=== PATIENT | male | born 1980 | race Caucasian/White ===

== ENCOUNTER → 2024-07-21 13:21 | Outpatient (REF) | payer BC, SELFPAY | LOC: RAD 13:21 | PROVIDERS: ATTENDING PHYSICIAN Hospitalist | DX: J06.9 Acute upper respiratory infection, unspecified (principal) | CPT/HCPCS: 71046 ==

== ENCOUNTER 2025-04-10 11:59 | Emergency (ER) | payer BC, SELFPAY ==
[2025-04-10 12:00] VITALS: BP 156/95
--- NOTE | 2025-04-10 13:55 | ED.GENMED ---
History of Present Illness
General
Chief Complaint: Musculo-Skeletal Complaint
Source: patient
Exam Limitations: none
Time Seen by Provider: 04/10/25 12:19
Nursing documentation reviewed up to this point in time: agreed with
History of Present Illness
History of Present Illness:
see MDM
Past History
Past History
ED Past Medical History: None
ED Past Surgical History: None
Social History
Tobacco: Smoker
Alcohol: Daily
Personal:
Living: with family
Review of Systems
Review of Systems
Allergies reviewed?: Yes
All Other Systems: Not applicable
Phy Exam
Physical Exam
Physical Exam:
GENERAL: Alert , in no apparent distress, comfortable at rest
HEAD: NCAT
CV: cap refill intact
NEUROLOGICAL: Alert and oriented, no focal neuro deficits, , 5/5 strength, sensation intact, ambulation slight limp right leg
SKIN: Warm and dry, ecchymosis R 4th finger distal phalanx palmar and dorsal
MUSCULOSKELETAL: moderate sewlling to R 4th finger distal phalax with bruising
limited flexion at DIP
sensation intact
some raynaud's discoloration after ice applied
but returned when ice removed
tender distal phalanx
nail intact
PSYCH: Normal and appropriate interaction.
Course
Orders/Labs/Results
Orders:
Orders
04/10/25 12:03
Finger(s)/Thumb 2 View Rt [CR Finger(s)/thumb Min 2 Vw Rt] Urgent
Comment:
Reason For Exam: injury
Indicate Which Finger:: Ring Finger
Vital Signs
Initial and Last Documented VS:
Initial Vital Signs
Temp Pulse Resp BP Pulse Ox
36.6 C 71 16 156/95 100
04/10/25 12:00 04/10/25 12:00 04/10/25 12:00 04/10/25 12:00 04/10/25 12:00
Last Documented Vital Signs
Temp Pulse Resp BP Pulse Ox
36.6 C 71 16 156/95 100
04/10/25 12:00 04/10/25 12:00 04/10/25 12:00 04/10/25 12:00 04/10/25 13:56
MDM/Problems Addressed
Differential Diagnosis Includes:
see mdm
MDM/Problems Addressed:
Note:
CHIEF COMPLAINT(S)
Finger fracture with associated swelling and inability to bend the finger.
HISTORY OF PRESENT ILLNESS
pt is right hand dominant here with R ringer finger swelling after doing yardwork. pt says something hit his R finger and now he has pain and swelling and cannot flex the DIP. no numbness, tingling.
PHYSICAL EXAM
- Swelling of the middle finger noted
- Limited range of motion due to swelling
- No visible signs of extensor tendon injury
PLAN
- Apply a finger splint for immobilization
- Follow-up with a hand specialist to assess the enchondroma and potential need for surgical intervention or further management
- Avoid icing due to increased discomfort; consider using heat alternatively
DIFFERENTIAL DIAGNOSIS
The Differential Diagnosis includes, in no particular order and is not limited to:
1. Fracture of the distal phalanx
2. Enchondroma
3. Soft tissue contusion
4. Flexor tendon injury
5. Extensor tendon injury
6. Infection (less likely given the lack of reported systemic symptoms)
7. Ligamentous injury
10. Neoplasm other than enchondroma (though considered unlikely based on radiological findings)
Disposition:
SUMMARY OF ENCOUNTER
A 33-year-old right-hand dominant male presented to the emergency department following an injury to his right fourth finger caused by a piece of lawn equipment snapping back. The patient experienced pain, swelling, ecchymosis, and decreased flexion
at the distal interphalangeal (DIP) joint. On examination, there was evidence of mild Raynaud syndrome in all fingers after using an ice pack, which resolved after applying a warm blanket. The patient displayed ecchymosis, swelling, and tenderness
of the distal phalanx without any nail injury. An X-ray was independently reviewed and revealed a fracture through the distal phalanx. Additionally, the study suggested the incidental finding of an enchondroma as interpreted by the radiologist.
RADIOLOGY � INDEPENDENT INTERPRETATION: My independent interpretation of the X-ray is a fracture through the distal phalanx with an incidental finding suggesting an enchondroma, as interpreted by the radiologist.
PROCEDURES
A finger splint was applied for immobilization of the injury.
MEDICATION RECONCILIATION
No medications were prescribed or administered in the ED beyond the finger splint.
MEDICAL DECISION MAKING
1. Number & Complexity of Problems: The patient presents with an acute fracture of the distal phalanx and an incidental finding of an enchondroma.
2. Data Reviewed:
- Category 1: Imaging of the finger ordered, reviewed, and interpreted.
3. Risk: Consideration of admission or observation was not necessary given the stable condition, outpatient management is suitable with the finger splint, and recommending follow-up with a hand surgeon due to the incidental enchondroma finding.
DISPOSITION
The patient was discharged home with advised follow-up with a hand surgeon to assess the enchondroma and for further management of the fracture.
PATHOLOGIES TO CONSIDER
- Fracture of the distal phalanx
- Enchondroma
*Pulse Oximetry
SaO2: 100
Oxygen Mode of Delivery: Room air
*Critical Care Note
Total Time (30-74mins, 75-104mins- exclusive of procedures): Not Applicable
ED Attending Note
-
Portions of this chart may have been created with voice recognition software.� Occasional wrong word or��sound alike� substitutions may have occurred due to the inherent limitations of voice recognition software.
Discharge Plan
Departure
Patient Disposition: Home (Routine Discharge)
Date of Disposition: 04/10/25
Time of Disposition: 14:02
Patient with high blood pressure during this ER visit?: Yes
Discharge Problem:
Finger fracture, right
Instructions: Finger Fracture ED
Prescriptions:
No Action
duloxetine 60 MG capsule,delayed release(DR/EC)
60 mg PO DAILY
thiamine HCl (vitamin B1) 100 MG tablet
100 mg PO DAILY 0RF
folic acid 1 MG tablet
1 mg PO DAILY 0RF
lorazepam 0.5 MG tablet
0.5 mg PO Q4HPRN PRN (Reason: anxiety) Qty: 6 0RF
Referrals:
Saran Mccann MD [Active, Orthopedics] - Follow up in 5-7 days
Lazaro Sosa MD [Family Provider, Internal Medicine]
Activity Restrictions/Additional Instructions:
Wear the finger splint, you can remove it when you bathe or wash your hands. You can apply ice off-and-on to your hand. Ibuprofen or Tylenol as needed for pain. Follow-up with the hand doctor given the cyst that was found in your bone. This is
likely a benign enchondroma. Return for any concerns
Interventions
Interventions:
*Risk Screen - Suicide Last Done: 04/10/25 12:00
*General Assessment Last Done: 04/10/25 14:16
*Neglect/Abuse Screening Last Done: 04/10/25 12:00
*ED- Fall Risk Assessment Last Done: 04/10/25 14:16
*ED COVID-19 Vaccine History Last Done: 04/10/25 14:16
*Nursing Disposition Last Done: 04/10/25 14:16
ED-Musculoskeletal Assessment Last Done: 04/10/25 14:22
Discharge Date and Time
Discharge Date/Time: 04/10/25 14:23
Print Language: THAI
== END 2025-04-10 14:23 | disposition home or self-care (01) ==
LOC: EMR 11:59
PROVIDERS: EMERGENCY PHYSICIAN Emergency Medicine; FAMILY PHYSICIAN Internal Medicine
DX: S62.634A Displaced fracture of distal phalanx of right ring finger, initial encounter for closed fracture (principal); X58.XXXA Exposure to other specified factors, initial encounter; Y93.89 Activity, other specified; R03.0 Elevated blood-pressure reading, without diagnosis of hypertension; D16.11 Benign neoplasm of short bones of right upper limb; F17.200 Nicotine dependence, unspecified, uncomplicated
CPT/HCPCS: 99283; 29130; 73140